=== PATIENT | female | born 1975 | race Hispanic/Latino ===

== ENCOUNTER → 2017-11-16 | Emergency (ER) | payer BC, OTHER ==
[~2017-11-16] VITALS: Ht 157.5 cm; Wt 97.5 kg
[~2017-11-16] MED LIST: HYDROMORPHONE 1MG/1ML INJ IV STA; HYDROMORPHONE 2MG/ML INJ IV ONE; KETOROLAC TROMETHAMINE 30 MG/ML VIAL IV STA; MORPHINE SULFATE 5 MG/ML VIAL IV ONE; ONDANSETRON HCL INJ 2 MG/ML VIAL IV ONE; ONDANSETRON HCL INJ 2 MG/ML VIAL IV STA; PROMETHAZINE 12.5MG/ NACL 0.9% 12.5 MG/50 ML BAG IV ONE; SODIUM CHLORIDE 0.9% 250ML 250 ML ONE
[2017-11-16 09:49] LABS: BASOPHILS % 0.3 % (0.0-1.0); EOSINOPHILS % 0.3 % (0.0-6.0); HEMATOCRIT 45.5 % (34.2-44.1); HEMOGLOBIN 15.7 g/dL (12.0-16.0); LYMPHOCYTES # (AUTO) 1.2 (1.0-3.2); LYMPHOCYTES % 13.4 % (18.0-39.1); MEAN CORPUSCULAR HEMOGLOBIN 31.8 pg (28-32); MEAN CORPUSCULAR HGB CONC 34.5 g/dL (31-35); MEAN CORPUSCULAR VOLUME 92.1 fL (81-99); MONOCYTES # (AUTO) 0.5 (0.2-0.8); MONOCYTES % 5.9 % (4.4-11.3); NEUTROPHILS # (AUTO) 7.2 (2.1-6.9); NEUTROPHILS % 79.8 % (38.7-80.0); PLATELET COUNT 243 x10e3/uL (140-360); RED BLOOD COUNT 4.94 x10e6/uL (3.6-5.1); RED CELL DISTRIBUTION WIDTH 12.4 % (11.7-14.4)
[2017-11-16] MEDS: SODIUM CHLORIDE 0.9% 1000ML 1,000 ML IV SCH ×7 (10:02→12:13)
[2017-11-16 10:19] LABS: ANION GAP 13.9 mmol/L (8-16); BLOOD UREA NITROGEN 10 mg/dL (7-26); BUN/CREATININE RATIO 14 (6-25); CALCIUM 8.9 mg/dL (8.4-10.2); CARBON DIOXIDE 22 mmol/L (22-29); CHLORIDE 107 mmol/L (98-107); CREATININE, SERUM 0.71 mg/dL (0.57-1.11); EST GLOMERULAR FILTRATION RATE > 60 ML/MIN (60-); GLUCOSE 112 mg/dL (74-118); POTASSIUM 3.9 mmol/L (3.5-5.1); SODIUM 139 mmol/L (136-145)
[2017-11-16 10:23] LABS: BILIRUBIN,URINE NEGATIVE (NEGATIVE); CLARITY,URINE CLEAR (CLEAR); COLOR,URINE YELLOW (YELLOW); KETONES,URINE NEGATIVE (NEGATIVE); LEUKOCYTE ESTERASE ,URINE NEGATIVE (NEGATIVE); NITRITE,URINE NEGATIVE (NEGATIVE); PROTEIN,URINE DIPSTICK NEGATIVE (NEGATIVE); URINE UROBILINOGEN 0.2 mg/dL (0.2 - 1)
[2017-11-16 11:15] LABS: EPITHELIAL CELLS,URINE FEW /LPF; RBC,URINE 0-5 /HPF (0-5); WBC,URINE (MAN) 0-5 /HPF (0-5)
--- NOTE | 2017-11-16 12:28 | Diagnostic Imaging Report ---
EXAM: CT Abdomen and Pelvis WITHOUT contrast INDICATION: Flank pain, left COMPARISON: None. TECHNIQUE: Abdomen and Pelvis was scanned utilizing a multidetector helical scanner without the use of IV contrast. Coronal and sagittal reformations were obtained. IV CONTRAST: None COMPLICATIONS: None RADIATION DOSE: Total DLP: 823 mGy*cm Estimated effective dose: (DLP x 0.015 x size factor) mSv CTDIvol has been reviewed. It is below the limits set by the Radiation Protocol Committee (RPC). FINDINGS: Abdomen: Lung Bases: Atelectasis. Solid Organs: Cholecystectomy clips. There is a 2 mm calculus at the left UVJ with mild left hydroureter and mild left hydronephrosis. There is mild left perinephric stranding. Otherwise, nonenhanced images of the liver, adrenals, right kidney, spleen, and pancreas are unremarkable. Upper GI Tract: No small bowel obstructive changes. Vascularity: No aortic aneurysm. Lymph Nodes: No suspicious adenopathy. Other: None. Pelvis: Bladder: Unremarkable. Other: None. Colon: No acute colonic findings. Appendix not inflamed. Bones: No acute findings. IMPRESSION: 1. 2 mm left UVJ calculus with mild left hydronephrosis. Signed by: Dr. Joon Huber MD on 11/16/2017 12:25 PM
[2017-11-16 13:54] VITALS: BP 145/98
== END | disposition home or self-care (01) ==
LOC: ER 08:13
DX: N20.1 Calculus of ureter (principal)
CPT/HCPCS: 36415; 74176; 80048; 81001; 85025; 87086; 99284; J1170; J2270; J2550; J7030; J7050; J2405